=== PATIENT | female | born 1965 | race Caucasian/White ===

== ENCOUNTER 2020-02-13 07:38 | Outpatient (CLI) | payer BC, SELFPAY ==
--- NOTE | 2020-02-13 07:58 | MM_ITS ---
WS: [id number] SCREENING DIGITAL MAMMOGRAM WITH CAD HISTORY: BREAST LUMP COMPARISON: 08/21/2018 and 07/23/2018 Bilateral CC and MLO views submitted. Computer aided detection analyzed. Breast composition: The breasts are heterogeneously dense, which may obscure small masses. 7 mm ovoid nodule 6:00 axis of the LEFT breast at a middle depth. There is an additional asymmetry se en in the posterior LEFT MLO projection above the nipple line which is been present on prior studies. There is benign calcification with soft tissue in the medial LEFT breast which is also stable. MM/[place] [id number] IMPRESSION: BI-RADS: 0-Incomplete: Need additional imaging evaluation FOLLOW UP: Need Additional Imaging LEFT breast: Spot compression views (CC and MLO). True ML. Ultrasound to follow if abnormality persists.
== END 2020-02-13 07:39 | disposition home or self-care (01) ==
LOC: RADSHAW 07:44
PROVIDERS: PCP Family Medicine; Visit Provider Nurse Practitioner Family
DX: N63.20 Unspecified lump in the left breast, unspecified quadrant (principal); R92.2 Inconclusive mammogram
CPT/HCPCS: 77066

== ENCOUNTER → 2020-03-11 12:43 | Outpatient (BNVA) | payer BC, SELFPAY | PROVIDERS: PCP Family Medicine; Visit Provider Surgery | DX: Z20.828 Contact with and (suspected) exposure to other viral communicable diseases (principal) | CPT/HCPCS: 87635 ==

== ENCOUNTER 2020-04-07 07:56 | Outpatient (CLI) | payer BC, SELFPAY ==
--- NOTE | 2020-04-07 08:11 | US_ITS ---
WS: [id number] ADDITIONAL VIEWS LEFT MAMMOGRAM LEFT BREAST ULTRASOUND HISTORY: ABNORMAL MAMMOGRAM COMPARISON: 02/13/2020, 08/19/2018 and 07/23/2018, 04/23/2019 LEFT MAMMOGRAM: Spot compression views and true ML. Persistent ovoid 7 mm nodule just lateral to the nipple line at a anterior to mid depth. There is an additional nodule inferior to the nipple line which is probably at 5:00. 11 mm ovoid nodule posterior ly is probably at 12 1:00. Seen best on exaggerated CC projection. There is a nodule with calcificati on also noted in the medial LEFT breast. All of these nodules were probably present on the most recen t study of 07/23/2018 but better seen today. LEFT BREAST ULTRASOUND 2-D and color Doppler imaging submitted. Hypoechoic ovoid nodule posteriorly at 12:00, 4 cm from the nipple measures 8 x 10 x 5 mm. No increas ed vascularity. Low level echoes and smooth borders. Additional hypoechoic nodule at 4:00 2 cm from t he nipple is slightly lobulated but very hypoechoic. This mass measures 8 x 10 x 5 mm. Both of these nodules were present on the prior study. These may be small fibroadenomas. US/US breast LT limited* [id number] IMPRESSION: BI-RADS: 3-Probably Benign FOLLOW UP: 6 Month Follow-up Recommend diagnostic LEFT mammogram in 6 months and possible ultrasound. These nodules within the LEFT breast need to be followed for a total of 2 years for s tability. Taking into consideration the difference in imaging techniques and di fferent locations of the mammography and ultrasound, there is probably no signi ficant change.
== END 2020-04-07 07:57 | disposition home or self-care (01) ==
LOC: RADSHAW 07:59
PROVIDERS: PCP Family Medicine; Visit Provider Nurse Practitioner Family
DX: R92.8 Other abnormal and inconclusive findings on diagnostic imaging of breast (principal); N63.25 Unspecified lump in the left breast, overlapping quadrants
CPT/HCPCS: 76642; 77065

== ENCOUNTER 2021-08-24 06:05 | Outpatient (CLI) | payer BC, SELFPAY ==
--- NOTE | 2021-08-24 07:07 | MM_ITS ---
WS: [id number] DIAGNOSTIC BILATERAL DIGITAL BREAST TOMOSYNTHESIS MAMMOGRAPHY WITH CAD LEFT breast ultrasound, limited HISTORY: BREAST LESION COMPARISON: 04/07/2020, 02/13/2020, 08/21/2018 TECHNIQUE: Bilateral craniocaudad, mediolateral oblique, and mediolateral views are submitted with to mosynthesis and SM. Spot compression LEFT CC and MLO. Computer aided detection utilized. Breast composition: The breasts are heterogeneously dense, which may obscure small masses. Appearance of the breasts in the parenchyma and nodules is similar to prior studies dating back to 08/21/2018. P artially calcified nodule consistent with fibroadenoma in the medial LEFT breast and lateral RIGHT br east. There are additional well-circumscribed nodules within the LEFT breast which are stable. Partia lly visualized nodule against the posterior chest wall. As visualized stable since 08/21/2018. No new mass or increasing size of any mass. LEFT breast ultrasound, limited. LEFT breast at 12:00, 4 cm from the nipple is a hypoechoic nodule which is stable measuring 1.0 x 1.2 x 0.5 cm. No increased vascularity. Additional slightly elongated hypoechoic nodule at 4:00, 2 cm fr om the nipple measures 1.3 x 1.0 x 0.6 cm. This may be duct with some debris. These findings are very similar to prior study from 08/21/2018. MM/[place] [id number] IMPRESSION: BI-RADS: 2-Benign FOLLOW UP: 1 Year Follow-up
== END 2021-08-24 06:06 | disposition home or self-care (01) ==
PROVIDERS: PCP Clinical Nurse Specialist Adult Health; Visit Provider Clinical Nurse Specialist Adult Health
DX: N63.20 Unspecified lump in the left breast, unspecified quadrant (principal)
CPT/HCPCS: 76642; 77062

== ENCOUNTER 2021-08-24 06:06 | Outpatient (CLI) | payer BC, SELFPAY ==
--- NOTE | 2021-08-24 | US_ITS ---
WS: [id number] THYROID ULTRASOUND (TI-RADS CRITERIA) History: LEFT palpable mass.. Technique: Ultrasound examination of the thyroid and adjacent soft tissues is performed. FINDINGS: Right lobe: 4.3 cm x 1.9 cm x 1.8 cm. Volume: 8.0 cm3. Mildly enlarged with coarse echogenicity throughout the gland. No mass. Lymph nodes: None. Left lobe: 4.3 cm x 1.8 cm x 1.6 cm. Volume: 6.6 cm3. Normal size gland. Hypoechoic nodule in the central gland, see below. Lymph nodes: Small benign. NODULE: 1 Size: 1.2 x 1.0 x 1.6 cm Location: Mid LEFT Composition: Cystic/almost completely cystic (0) Echogenicity: Very hypoechoic (3) Shape: Not taller than wide (0) Margins: Smooth (0) Echogenic foci: None (0) ACR TI-RADS total points: 3 Isthmus: 0.5 cm. US/US thyroid [id number] Impression: TR 3 Recommendation:Follow-up ultrasound recommended to document long-term stability of a hypoechoic nodule mid LEFT thyroid. Follow-up ultrasound is recommended i n one, 3 and 5 years. If thyroid nodule(s) change on follow-up examinations the recommendations will be altered as necessary.
== END 2021-08-24 06:07 | disposition home or self-care (01) ==
LOC: RAD 06:08
PROVIDERS: PCP Clinical Nurse Specialist Adult Health; Visit Provider Clinical Nurse Specialist Adult Health
DX: E04.1 Nontoxic single thyroid nodule (principal)
CPT/HCPCS: 76536

== ENCOUNTER 2021-09-02 06:59 | Outpatient (CLI) | payer BC, SELFPAY ==
--- NOTE | 2021-09-02 08:37 | ECG_ITS ---
[facility] Test Date: 2021-09-02 Pat Name: Gale Guillory Department: Room: Gender: Female Media Production Support Manager: Milagroketty PachecoAndrew : 1965 Requested By: Johann Benson Order Number: [id number] Nga MD: David Mayer M.D. Interpretive Statements NAME OF STUDY: EXERCISE SESTAMIBI STRESS TEST INDICATION: Shortness of breath PROCEDURE: The baseline electrocardiogram showed [normal sinus rhythm with nonspecific ST changes, in the inferolateral leads. Poor R wave progression.. At the baseline, the patient's blood pressure was 118/83 mm Hg with a heart rate of 63. The patient exercised for 8 minutes and 10 seconds on a standard Juan protocol. Patient attained a maximum heart rate of 163 beats per minute(99% of the maximum predicted heart rate) with a blood pressure at the peak exercise of 119/115 mm Hg. The EKG at the peak exercise revealed ST depressions of at least 1 mm in lead II, III, aVF, V5 and V6. Patient did not have any chest pain or any significant arrhythmis with the exercise Sestamibi was injected 1 minute prior to the peak exercise During the recovery phase, there were no new changes. Blood pressure at the end of the recovery phase was 167/60 mm Hg with a heart rate of 82 per minute. CONCLUSION: 1. Abnormal EKG response to [treadmill exercise suggesting inferolateral wall ischemia 2. No exercise-induced chest pain or cardiac arrhythmia 3. Fair exercise tolerance, attained a maximum of 10.2 METs 4. Sestamibi/Sestamibi perfusion results pending; see separate report. Electronically Signed On 09-02-2021 13:45:07 CDT by David Mayer M.D. [email or web address]
--- NOTE | 2021-09-02 08:38 | NMCV_ITS ---
NM wendi perf SPECT r/s* [id number] Gale Guillory Age: 56 Gender: F : 1965 Exam Date: 09/02/2021 08:53 Ordering Phys: Johann Sullivan NP Technologist: LARON Sanchez Exam Location: [facility] Indications: SHORTNESS OF BREATH STRESS TEST Please see separate stress test report in [facility] for full findings IMAGE PROTOCOL Rest/Stress 1 Exercise Day Radiopharmaceutical Dose (mCi) Administration Site Administered by Rest: Tc-99m 10.9 IV LARON Roland Sestamibi Stress:Tc-99m 33.0 IV LARON Roland Sestamiaroldo Rest: 02-Sep-2021 60 Discovery 630 Stress: 02-Sep-2021 15 Discovery 630 Radiopharmaceutical was injected at 97 % maximum heart rate. Images obtained in supine and prone position. SPECT RESULTS Technical Quality: Excellent Raw Data Analysis: Normal Image Corrections: No attenuation or motion correction applied Summed Stress Score: 0 Summed Rest Score: 0 Summed Difference Score: 0 PERFUSION FINDINGS Uniform myocardial tracer uptake with no significant perfusion abnormalities FUNCTIONAL RESULTS (calculated via Gated SPECT) Stress Image LV EF (%): 75 Stress EDV (mL):69 TID: 0.93 Stress ESV (mL):17 FUNCTIONAL FINDINGS: Segmental wall motion analysis revealing no gross wall motion abnormalities IMPRESSIONS 1. Myocardial perfusion imaging revealing no significant perfusion normalities. 2. LV wall motion analysis revealing no gross wall motion normalities. 3. Normal LV ejection fraction of 75%. 4. Normal LV volume. No similar previous studies are available for comparison Dr David Mayer MD [facility] (Electronically Signed) Final Date: 02 September 2021 15:03 S
[2021-09-02 08:39] VITALS: BMI 28.8
[2021-09-02 09:52] VITALS: BP 118/89; PULSE 66
== END 2021-09-02 07:00 | disposition home or self-care (01) ==
LOC: CDL 07:01
PROVIDERS: PCP Clinical Nurse Specialist Adult Health; Visit Provider Clinical Nurse Specialist Adult Health
DX: R06.02 Shortness of breath (principal)
CPT/HCPCS: 78452; 93017; A9500

== ENCOUNTER 2021-12-14 06:09 | Outpatient (CLI) | payer BC, SELFPAY ==
--- NOTE | 2021-12-14 06:15 | USCV_ITS ---
Gale Guillory Age: 56 Gender: F : 1965 Exam Date: 12/14/2021 06:19 Ordering Phys: David Mayer MD ([email or web address]) Technologist: ANNIE Exam Location: [facility] [place] Indication: FATIGUE/SHORTNESS OF BREATH BP: 135 / 68 HR: 62 Rhythm: Sinus Technical Quality: Adequate MEASUREMENTS (Male / Female) Normal Values 2D ECHO LV Diastolic Diameter PLAX 4.1 cm 4.2 - 5.9 / 3.9 - 5.3 cm LV Systolic Diameter PLAX 2.8 cm IVS Diastolic Thickness 1.2 cm 0.6 - 1.0 / 0.6 - 0.9 cm IVS Systolic Thickness 1.8 cm LVPW Diastolic Thickness 1.4 cm 0.6 - 1.0 / 0.6 - 0.9 cm LVPW Systolic Thickness 1.7 cm LVOT Diameter 2.0 cm LV Ejection Fraction 2D Teich 60.7 % LV Ejection Fraction MOD 2C 67.5 % LV Ejection Fraction 2C AL 70.5 % LA Diameter 2.9 cm LA Width 2.9 cm LA Height 3.2 cm RA Width 2.9 cm RA Height 3.6 cm Aorta at Sinotubular Diameter 2.6 cm IVC Diameter 1.5 cm M-MODE Aortic Annulus Diameter 2.7 cm LA Ao Ratio MM 0.9 MV E Point Septal Separation 0.4 cm DOPPLER MV Peak Velocity 78.0 cm/s MV Area PHT 3.9 cm squared Mitral E to A Ratio 1.3 MV E' Velocity 43.0 cm/s Mitral E to MV E' Ratio 7.8 Mitral E to LV E' Lateral Ratio 8.5 Mitral E to LV E' Septal Ratio 7.3 TR Peak Velocity 198.4 cm/s TR Peak Gradient 15.8 mmHg TR Mean Velocity 156.6 cm/s TR Mean Gradient 10.3 mmHg TR Velocity Time Integral 52.9 cm TV Peak E Velocity 35.0 cm/s Right Atrial Pressure 3.0 mmHg Pulmonary Artery Systolic Pressu 18.8 mmHg PV Peak Velocity 93.0 cm/s RV Acceleration Time 0.2 s RV Ejection Time 0.3 s RV AcT/ET 0.6 FINDINGS Left Ventricle Normal left ventricular size, systolic function and wall thickness, with no regional wall motion abnormalities. Left ventricular ejection fraction is estimated at 70 %. Normal diastolic function. Right Ventricle Normal right ventricular size and systolic function. Right ventricular systolic pressure 20 mmHg. Right Atrium Normal right atrial size. Left Atrium Normal left atrial size. Mitral Valve Mild bowing of anterior mitral leaflet. No mitral valve prolapse. No mitral valve stenosis. Trace mitral valve regurgitation. Aortic Valve Structurally normal trileaflet aortic valve. Visually no aortic valve stenosis. Aortic valve was not assessed by Doppler. Tricuspid Valve Structurally normal tricuspid valve. Trace tricuspid valve regurgitation. Pulmonic Valve Pulmonic valve not well visualized. Trace pulmonary valve regurgitation. Pericardium No pericardial effusion. Aorta Normal size aortic root and proximal ascending aorta. IVC Normal IVC dimension with >50% respiratory change of the inferior vena cava. CONCLUSIONS 1. Normal left ventricular size, systolic function and wall thickness, with no regional wall motion abnormalities. Left ventricular ejection fraction is estimated at 70 %. Normal diastolic function. 2. Mild bowing of anterior mitral leaflet. No mitral valve prolapse. Trace mitral valve regurgitation. 3. Normal pulmonary artery pressure estimated at 20 mmHg. 4. No prior similar studies to compare. Nancy Alcocer MD (Electronically Signed) Final Date: 14 December 2021 13:32 S
== END 2021-12-14 06:10 | disposition home or self-care (01) ==
LOC: RAD 06:10
PROVIDERS: PCP Clinical Nurse Specialist Adult Health; Visit Provider Internal Medicine Cardiovascular Disease
DX: I34.0 Nonrheumatic mitral (valve) insufficiency (principal); R06.00 Dyspnea, unspecified; R94.39 Abnormal result of other cardiovascular function study
CPT/HCPCS: 93306

== ENCOUNTER → 2022-03-15 13:55 | Outpatient (BNVA) | payer BC, SELFPAY | PROVIDERS: PCP Clinical Nurse Specialist Adult Health; Visit Provider Clinical Nurse Specialist Adult Health | DX: R06.02 Shortness of breath (principal); R53.83 Other fatigue; R03.0 Elevated blood-pressure reading, without diagnosis of hypertension | CPT/HCPCS: 82785; 86003 ==

== ENCOUNTER 2022-03-23 11:18 | Outpatient (CLI) | payer BC, SELFPAY | END 2022-03-23 11:19 | disposition home or self-care (01) | PROVIDERS: PCP Clinical Nurse Specialist Adult Health; Visit Provider Clinical Nurse Specialist Adult Health | DX: R06.02 Shortness of breath (principal) | CPT/HCPCS: 94060; 94726; 94729; J7613 ==

== ENCOUNTER → 2022-03-28 12:44 | Outpatient (BNVA) | payer BC, SELFPAY | PROVIDERS: PCP Clinical Nurse Specialist Adult Health; Visit Provider Clinical Nurse Specialist Adult Health | DX: R41.840 Attention and concentration deficit (principal); R53.83 Other fatigue; R03.0 Elevated blood-pressure reading, without diagnosis of hypertension; R06.02 Shortness of breath; T78.40XA Allergy, unspecified, initial encounter; Z80.8 Family history of malignant neoplasm of other organs or systems | CPT/HCPCS: 82785; 86003 ==

== ENCOUNTER → 2022-04-21 17:46 | Outpatient (BNVA) | payer BC, SELFPAY | PROVIDERS: PCP Clinical Nurse Specialist Adult Health; Visit Provider Internal Medicine Pulmonary Disease | DX: R06.09 Other forms of dyspnea (principal); J98.4 Other disorders of lung | CPT/HCPCS: 36415; 71046; 85025 ==

== ENCOUNTER 2023-08-30 07:51 | Outpatient (CLI) | payer BC, SELFPAY ==
--- NOTE | 2023-08-30 07:58 | MM_ITS ---
WS: [id number] BILATERAL SCREENING DIGITAL TOMOSYNTHESIS MAMMOGRAM WITH CAD HISTORY: SCREENING COMPARISON: 08/24/2021, 04/07/2020, 08/21/2018 Bilateral CC and MLO views with tomosynthesis and synthetic mammography submitted. Computer aided det ection analyzed. Breast composition: The breasts are heterogeneously dense, which may obscure small masses. No suspici ous masses, microcalcifications or architectural distortion. Benign coarse calcifications in each saleem ast. 10 mm nodule in the anterior medial LEFT breast has been present on multiple prior exams. There is an additional nodule measuring 12 mm in the posterior LEFT breast near 12:00. All of these finding s are stable. MM/[place] [id number] IMPRESSION: BI-RADS: 2-Benign FOLLOW UP: 1 Year Follow-up
== END 2023-08-30 07:52 | disposition home or self-care (01) ==
LOC: RAD 07:51
PROVIDERS: PCP Clinical Nurse Specialist Adult Health; Visit Provider Clinical Nurse Specialist Adult Health
DX: Z12.31 Encounter for screening mammogram for malignant neoplasm of breast (principal); R92.333 Mammographic heterogeneous density, bilateral breasts; R92.1 Mammographic calcification found on diagnostic imaging of breast; N63.21 Unspecified lump in the left breast, upper outer quadrant
CPT/HCPCS: 77063; 77067

== ENCOUNTER → 2023-10-11 07:10 | Outpatient (BNVA) | payer BC, SELFPAY | PROVIDERS: PCP Clinical Nurse Specialist Adult Health; Visit Provider Clinical Nurse Specialist Adult Health | DX: J82.83 Eosinophilic asthma (principal); Z00.00 Encounter for general adult medical examination without abnormal findings | CPT/HCPCS: 80053; 80061; 84443; 85025; 87624 ==

== ENCOUNTER 2023-11-01 06:56 | Outpatient (CLI) | payer BC, SELFPAY ==
--- NOTE | 2023-11-01 06:45 | US_ITS ---
WS: [id number] THYROID ULTRASOUND HISTORY: hx of thyroid nodule COMPARISON: 08/24/2021 Right lobe: 1.6 cm x 1.2 cm x 4.8 cm (w x ap x l). Volume: 4.4 cm3. Normal size and echotexture. No significant are dominant nodules are present. Left lobe: 1.5 cm x 1.4 cm x 3.5 cm (w x ap x l). Volume: 3.6 cm3. Reidentified is a hypoechoic nodule in the mid gland measuring 0.6 x 0.8 x 0.9 cm. This nodule is als o present on the prior study and is measuring slightly smaller in size. This nodule appears less cyst ic today and more solid. No increased vascularity. Isthmus: 0.4 cm. US/US thyroid [id number] IMPRESSION: TI-RADS 4; nodule LEFT thyroid. This nodule has decreased in size as compared t o the prior study. Due to the decrease in size this is probably benign. It does appear more solid on today's ultrasound. Based on TI-RADS criteria this may un dergo yearly ultrasound evaluation. No biopsy necessary at this time.
== END 2023-11-01 06:57 | disposition home or self-care (01) ==
PROVIDERS: PCP Clinical Nurse Specialist Adult Health; Visit Provider Clinical Nurse Specialist Adult Health
DX: E04.1 Nontoxic single thyroid nodule (principal)
CPT/HCPCS: 76536; 80053; 80061; 84443; 85025; 87624